=== PATIENT | male | born 1945 | race Caucasian/White ===

== ENCOUNTER → 2021-08-27 10:13 | Outpatient (BNVA) | payer MEDICARE, SELFPAY | PROVIDERS: PCP Nurse Practitioner Family; Visit Provider Urology | DX: R97.20 Elevated prostate specific antigen [PSA] (principal); N40.1 Benign prostatic hyperplasia with lower urinary tract symptoms; N13.8 Other obstructive and reflux uropathy; F10.21 Alcohol dependence, in remission; Z80.1 Family history of malignant neoplasm of trachea, bronchus and lung | CPT/HCPCS: 99212 ==

== ENCOUNTER 2022-09-17 11:24 | Outpatient (AMB) | payer MEDICARE, SELFPAY ==
--- NOTE | 2022-09-17 11:26 | MHC.OFFVIS ---
Intake Intake Visit Reasons: 1 Year PSA(SET) Intake Note: 1 yr fu PSA [employer] Required: No Allergies No Known Allergies Allergy (Verified 09/20/23 11:32) HPI HPI Comments History of Present Illness Details Mr Hoffmann is a very pleasant male. They are a patient Dr Lehman. They are seen in the office today for the following urologic conditions. ?- doing well. Elevated PSA/Abnormal MATEUS:? PSA remains low off finasteride Continue yearly review Urinary parameters otherwise stable ? Current management is?observation.? Laboratory investigations include?a total PSA evaluation debris 2004 9.3, July 2005 2.8, 2006 3.3, 2008 3.6, 2009 2.1, 2011 2.1, 2013 2.8, 2014 1.9 ?05/2017 2.5 ?07/01 2.5 ?06/01 3.5, 06/02 2.2, 09/03 2.2, 09/04 2.8 ? Individualized Prostate Cancer Risk Calculator?< 5% high risk, Would like to continue with observation and understands and accepts the risks of a possible delay in diagnosis.? A TRUS biopsy? has ?been performed and is negative 2004 ? His current IPSS? IPSS Score ?10 ? Symptoms include?nocturia, x 2, and are stable.? Overall symptoms are?mild.? Therapeutic plan will be?continued surveillance.? PFSH Medical History Elevated PSA Benign prostatic hyperplasia without lower urinary tract symptoms Family History Father Lung cancer Mother Stroke Alzheimer disease Brother Heart attack Social History Alcohol intake: former Patient Tobacco Use Status: Never used Tobacco Review of Systems Const Denies chills and Denies fever(s) Card Reports no additional complaints and Denies syncope Resp Denies cough GI Denies abdominal pain and Denies heartburn Reports as per HPI and Denies change in libido Neuro Denies syncope Psych Denies change in libido Endo Denies change in libido Physical Exam Const General: cooperative, healthy appearing, comfortable and no acute distress Orientation/consciousness: patient oriented x3 HEENT Face and sinus: Yes normal facial exam Mouth: moist mucous membranes Neck Neck: Yes normal visual inspection, Yes full ROM and Yes trachea midline Chest Chest palpation & inspection: normal inspection of the chest Resp Effort & Inspection: normal respiratory effort, able to speak in complete sentences and no respiratory distress GI Inspection: Yes normal to inspection Back/Spine/Pelvis Cervical Spine: normal cervical lordosis Thoracic/Lumbar Spine: thoracic and lumbar spine normal to inspection Skin General skin exam: no rashes or lesions noted Neuro General: patient oriented x3, gait normal, tone normal and moves all extremities Extrem General: Yes normal to inspection and Yes capillary refill normal Results AMB Urinalysis, Automated UA Leukoctes 0 Eva/uL Last Edit by YULIA Guillen on 09/17/22 11:46 UA Nitrite Negative Last Edit by YULIA Guillen on 09/17/22 11:46 UA Urobilinogen 0 mg/dL Last Edit by YULIA Guillen on 09/17/22 11:46 UA Protein 0 mg/dL Last Edit by YULIA Guillen on 09/17/22 11:46 UA pH 7 Last Edit by YULIA Guillen on 09/17/22 11:46 UA Blood 0 Miguel/uL Last Edit by Yris Rosa Meena on 09/17/22 11:46 UA Specific [place] 1.010 Last Edit by YULIA Guillen on 09/17/22 11:46 UA Ketone Negative Last Edit by YULIA Guillen on 09/17/22 11:46 UA Bilirubin 0 mg/dL Last Edit by YULIA Guillen on 09/17/22 11:46 UA Glucose 0 mg/dL Last Edit by YULIA Guillen on 09/17/22 11:46 Results Reviewed Results Reviewed: Laboratory Last Values Urine pH (Auto) 7 11/04/22 11:45 Specific [place] (Auto) 1.010 09/17/22 11:45 Urine Protein (Auto) 0 mg/dL 09/17/22 11:45 Glucose (UA)(Auto) 0 mg/dL 09/17/22 11:45 Urine Ketones (Auto) Negative 09/17/22 11:45 Urine Blood (Auto) 0 Miguel/uL 09/17/22 11:45 Urine Nitrite (Auto) Negative 09/17/22 11:45 Urine Bilirubin (Auto) 0 mg/dL 09/17/22 11:45 Urine Urobilinogen (Auto) 0 mg/dL 09/17/22 11:45 Leukocyte Esterase (Auto) 0 Eva/uL 09/17/22 11:45 Assessment & Plan Assessment & Plan (1) Elevated PSA: Code(s): R97.20 - Elevated prostate specific antigen [PSA] (2) Benign prostatic hyperplasia without lower urinary tract symptoms: Code(s): N40.0 - Benign prostatic hyperplasia without lower urinary tract symptoms Plan Twelve month follow-up Orders: Orders Prostate Specific Antigen 12 Months N40.0 - Benign prostatic hyperplasia without lower urinary tract symptoms AMB Urinalysis Automated 09/17/22 Z13.9 - Encounter for screening, unspecified Patient Instructions: Imaging studies, laboratory and physical exam results were discussed and reviewed in detail. No major barriers to patient understanding were identified. An opportunity to ask questions regarding the treatment plan was provided. All questions were answered. The patient expressed understanding and agreement with the above treatment plan. The patient is aware they should contact our office by phone for worsening of their current condition or the appearance of new urologic symptoms. Compliance is encouraged with any medications and followup testing that is ordered. It is a privilege to participate in the urologic care of your patient. If you have any questions or concerns regarding treatment for the above conditions, or other urologic issues, please do not hesitate to contact me. The office telephone contact is [phone]. This note is constructed using voice recognition software. While every effort has been made to ensure accuracy metal hardener errors may have been included. Yours sincerely, Dr Sawyer Chinchilla MD, [facility] - Urology Providers of Expert, Compassionate Care for the Genitourinary System Coding Level of Care Code Est Pt Level 4 (40343) Diagnoses Elevated PSA R97.20 Benign prostatic hyperplasia without lower urinary tract symptoms N40.0
== END 2022-09-17 12:34 | disposition home or self-care (01) ==
LOC: HO.HUSH 11:24
PROVIDERS: PCP Hospitalist; Visit Provider Urology
DX: R97.20 Elevated prostate specific antigen [PSA] (principal); N40.0 Benign prostatic hyperplasia without lower urinary tract symptoms
CPT/HCPCS: 99499

== ENCOUNTER 2023-09-20 11:25 | Outpatient (AMB) | payer MEDICARE, SELFPAY ==
--- NOTE | 2023-09-20 11:27 | MHC.OFFVIS ---
Intake Intake Visit Reasons: 1Y PSA(set) Intake Note: Patient is Present for Follow Up PSA Urology Medication: None Antibiotic Allergies: None Blood Thinners: Warfarin, Aspirin Allergies No Known Allergies Allergy (Verified 09/20/23 11:32) HPI HPI Comments History of Present Illness Details Mr Hoffmann is a very pleasant male. They are a patient Dr Lehman. They are seen in the office today for the following urologic conditions. - lower urinary tract symptoms Effective voiding parameter PSA remains stable Elevated PSA/Abnormal MATEUS:? PSA remains low off finasteride Continue yearly review Urinary parameters otherwise stable ? Current management is?observation - prior use of finasteride ? Laboratory investigations include?a total PSA evaluation 2004 9.3, July 2005 2.8, 2006 3.3, 2007 3.6, 2009 2.1, 2011 2.1, 2013 2.8, 2014 1.9, 05/2017 2.5, 07/01 2.5 ?06/01 3.5, 06/02 2.2, 09/03 2.2, 09/04 2.8, 09/05 2.9 ? Individualized Prostate Cancer Risk Calculator?< 5% high risk, Would like to continue with observation and understands and accepts the risks of a possible delay in diagnosis.? A TRUS biopsy? has ?been performed and is negative 2004 ? His current IPSS? IPSS Score ?10 ? Symptoms include?nocturia, x 2, and are stable.? Overall symptoms are?mild.? Therapeutic plan will be?continued surveillance.? PFSH Medical History Elevated PSA Benign prostatic hyperplasia without lower urinary tract symptoms Family History Father Lung cancer Mother Stroke Alzheimer disease Brother Heart attack Social History Alcohol intake: former Patient Tobacco Use Status: Never used Tobacco Review of Systems Const Denies chills and Denies fever(s) Card Reports no additional complaints and Denies syncope Resp Denies cough GI Denies abdominal pain and Denies heartburn Reports as per HPI and Denies change in libido Neuro Denies syncope Psych Denies change in libido Endo Denies change in libido Physical Exam Const General: cooperative, healthy appearing, comfortable and no acute distress Orientation/consciousness: patient oriented x3 HEENT Face and sinus: Yes normal facial exam Mouth: moist mucous membranes Neck Neck: Yes normal visual inspection, Yes full ROM and Yes trachea midline Chest Chest palpation & inspection: normal inspection of the chest Resp Effort & Inspection: normal respiratory effort, able to speak in complete sentences and no respiratory distress GI Inspection: Yes normal to inspection Back/Spine/Pelvis Cervical Spine: normal cervical lordosis Thoracic/Lumbar Spine: thoracic and lumbar spine normal to inspection Skin General skin exam: no rashes or lesions noted Neuro General: patient oriented x3, gait normal, tone normal and moves all extremities Extrem General: Yes normal to inspection and Yes capillary refill normal Assessment & Plan Assessment & Plan (1) Benign prostatic hyperplasia without lower urinary tract symptoms: Code(s): N40.0 - Benign prostatic hyperplasia without lower urinary tract symptoms (2) Elevated PSA: Code(s): R97.20 - Elevated prostate specific antigen [PSA] Plan Twelve month follow-up PSA Orders: Orders Prostate Specific Antigen 364 Days N40.0 - Benign prostatic hyperplasia without lower urinary tract symptoms Patient Instructions: Imaging studies, laboratory and physical exam results were discussed and reviewed in detail. No major barriers to patient understanding were identified. An opportunity to ask questions regarding the treatment plan was provided. All questions were answered. The patient expressed understanding and agreement with the above treatment plan. The patient is aware they should contact our office by phone for worsening of their current condition or the appearance of new urologic symptoms. Compliance is encouraged with any medications and followup testing that is ordered. It is a privilege to participate in the urologic care of your patient. If you have any questions or concerns regarding treatment for the above conditions, or other urologic issues, please do not hesitate to contact me. The office telephone contact is [phone]. This note is constructed using voice recognition software. While every effort has been made to ensure accuracy director financial systems errors may have been included. Yours sincerely, Dr Sawyer Chinchilla MD, [facility] - Urology Providers of Expert, Compassionate Care for the Genitourinary System Coding Level of Care Code Est Pt Level 4 (39324) Diagnoses Benign prostatic hyperplasia without lower urinary tract symptoms N40.0 Elevated PSA R97.20
== END 2023-09-20 12:26 | disposition home or self-care (01) ==
PROVIDERS: Visit Provider Urology
DX: N40.0 Benign prostatic hyperplasia without lower urinary tract symptoms (principal); R97.20 Elevated prostate specific antigen [PSA]
CPT/HCPCS: 99213

== ENCOUNTER → 2023-09-20 11:25 | Outpatient (BNVA) | payer MEDICARE, SELFPAY | PROVIDERS: Visit Provider Urology | DX: N40.1 Benign prostatic hyperplasia with lower urinary tract symptoms (principal); N13.8 Other obstructive and reflux uropathy; R97.20 Elevated prostate specific antigen [PSA]; Z79.82 Long term (current) use of aspirin | CPT/HCPCS: 99212 ==